=== PATIENT | female | born 1965 | race Caucasian/White ===

== ENCOUNTER 2023-01-10 12:27 | Outpatient (AMB) | payer OTHER, SELFPAY ==
--- NOTE | 2023-01-10 12:34 | AM.OFFWIN_ITS ---
Intake Vital Signs 01/10/23 12:36 Height 5 ft 4 in BP 130/78 Blood Pressure Location Lt brachial Position Sitting Pulse 73 Pulse Source Pulse Oximeter Temp 98.3 F Temp Source Oral Pulse Oximetry (%) 97 Oxygen Delivery Method Room Air Intake Visit Reasons: EP Pinched nerve, numbing waist down rt side Intake Note: pt is here for for a pinched nerve and numbing waist down from right side for other a week Patient Tobacco Use Status: Former Tobacco user Allergies penicillamine Allergy (Intermediate, Verified 01/10/23 13:10) Hives Medication List - Last Reconciled 01/10/23 by Harrison Espitia PA-C amlodipine 5 mg PO DAILY hydrochlorothiazide 25 mg PO DAILY meloxicam 15 mg PO DAILY prednisone 10 mg PO DAILY 6 days Do you need a note to return to daycare/school/sports/work: Yes HPI EP Pinched nerve, numbing waist down rt side HPI Details Patient is a 57-year-old female here today complaining of a pinched nerve in her lumbar spine having numbness in her right lower extremity over the last week. She also reports having numbness in her right hand contributes this to possible carpal tunnel syndrome. She does have a history of sciatica affecting right lower extremity has not tried any [id number] meds or exercises as of yet for her lumbar spine She has tried to get into her primary care though cannot get an appointment. [facility] [place] Social History Patient Tobacco Use Status: Former Tobacco user Review of Systems Const Denies headache(s) Eyes Denies loss of vision ENT Denies vertigo, Denies dizziness, Denies headache(s) and Denies sore throat Card Denies chest pain, Denies leg edema and Denies lightheadedness Resp Denies cough, Denies hemoptysis and Denies wheezing GI Denies abdominal pain, Denies melena, Denies constipation, Denies diarrhea and Denies vomiting Denies urinary frequency, Denies dysuria and Denies urinary urgency Musc Denies arthralgias, Denies joint swelling, Denies numbness and Denies tingling Neuro Denies Abnormal speech present, Denies behavioral changes, Denies vertigo, Denies dizziness, Denies headache(s), Denies loss of vision, Denies memory loss, Denies numbness and Denies tingling Psych Denies anxiety, Denies behavioral changes, Denies depression, Denies memory loss and Denies panic attacks Alberto/Lymph Denies easy bleeding and Denies easy bruising Aller/Immun Denies wheezing Physical Exam Vital Signs: Last Vital Signs Temp 98.3 F 01/10/23 12:36 Pulse 73 01/10/23 12:36 BP 130/78 01/10/23 12:36 Pulse Ox 97 01/10/23 12:36 Oxygen Delivery Method Room Air 01/10/23 12:36 Const General: healthy appearing, no acute distress, alert and awake Nutritional Appearance: well nourished Orientation/consciousness: oriented to person, oriented to place and oriented to time HEENT Ears: TM's normal bilaterally General nose exam: Normal nasal mucous membranes and turbinates present Eyes Conjunctivae: conjunctivae normal Sclerae: sclerae normal Pupils: Equal, round and reactive pupils present Neck Neck: Yes no lymphadenopathy and Yes no JVD Thyroid: Thyroid normal Carotids: no bruits Resp Effort & Inspection: normal respiratory effort and not tachypneic Auscultation: no crackles, no rales, no rhonchi and no wheezes Cardio Rate: regular rate Rhythm: regular rhythm Heart sounds: no murmurs and normal S1 and S2 GI Palpation (GI): Soft to palpation, nontender, no hepatomegaly and no splenomegaly Auscultation: normal bowel sounds Back/Spine/Pelvis Other: Full range of motion of lumbar spine, decreased sensation to light touch over lateral aspect of right lower extremity. Skin General skin exam: no rashes or lesions noted and dry skin Neuro General: oriented to person, oriented to place and oriented to time Cranial nerves: Yes Equal, round and reactive pupils present Speech: No Abnormal speech present Gait exam (Neuro): Normal gait present Motor exam (neuro): no tremor noted Extrem Right upper extremity: full ROM Left upper extremity: full ROM Right lower extremity: full ROM; no edema Left lower extremity: full ROM; no edema Psych Mental Status: mental status grossly normal Speech and movement: Normal speech and movement present Affect: normal affect Attitude: cooperative Thought process: Normal thought process present Assessment & Plan Assessment & Plan (1) Lumbar radicular pain: Code(s): M54.16 - Radiculopathy, lumbar region Plan: In signs symptoms concerning for disc herniation, will send for x-ray to evaluate for arthritis or disc height loss. Will supply prednisone taper for inflammation in lumbar spine. Advised to follow-up with her PCP about getting physical therapy and possibly MRI to evaluate for lumbar disc herniation. Orders: Orders XR lumbar spine 4V min Today M54.16 - Radiculopathy, lumbar region Medications: New prednisone 10 mg PO DAILY 6 days 12 tabs 0RF M54.16 - Radiculopathy, lumbar region Coding Level of Care Code Est Pt Level 3 (90743) Diagnoses Lumbar radicular pain M54.16
[2023-01-10 12:36] VITALS: BP 130/78; PULSE 73; TEMP 36.8; O2SAT 97
== END 2023-01-10 13:14 | disposition home or self-care (01) ==
PROVIDERS: Visit Provider Physician Assistant
DX: M54.16 Radiculopathy, lumbar region (principal)
CPT/HCPCS: 99051; 99213

== ENCOUNTER 2023-01-10 13:11 | Outpatient (REF) | payer OTHER, SELFPAY ==
--- NOTE | ~2023-01-10 | XR_ITS ---
EXAMINATION: XR LUMBOSACRAL SPINE WITH OBLIQUES CLINICAL INFORMATION: Radiculopathy COMPARISON: None available. TECHNIQUE: AP, both oblique, and lateral views of the lumbar spine. Lateral view of the lumbosacral junction. FINDINGS: Bones are normal anatomic alignment with no acute fracture or spondylolisthesis seen. Mild degenerative changes seen in the posterior elements of the lower lumbar spine with mild anterior osteophyte formation at several levels. XR/XR lumbar spine 4V min IMPRESSION: Mild degenerative changes but no acute fracture or spondylolisthesis.
== END 2023-01-10 13:12 | disposition home or self-care (01) ==
LOC: HO.HMGCX 13:11
PROVIDERS: Visit Provider Physician Assistant
DX: M54.16 Radiculopathy, lumbar region (principal)
CPT/HCPCS: 72110

== ENCOUNTER 2024-03-16 08:01 | Outpatient (AMB) | payer OTHER, SELFPAY ==
--- NOTE | 2024-03-16 08:03 | AM.OFFWIN_ITS ---
Intake Vital Signs 3 03/16/24 08:04 Weight 175 lb BP 124/78 Blood Pressure Location Rt brachial Position Sitting Pulse 70 Pulse Source Pulse Oximeter Pulse Oximetry (%) 98 Oxygen Delivery Method Room Air Intake Visit Reasons: EP pain in mouth Intake Note: Patient here for possible tooth infection and is looking for antibiotics. worsening over the past couple of days. Patient Tobacco Use Status: Former Tobacco user Allergies Penicillins Allergy (Severe, Verified 03/16/24 08:19) Angioedema Do you need a note to return to daycare/school/sports/work: No HPI HPI Comments 2 History of Present Illness0 Details Patient is a 58-year-old female who states she has a broken tooth on her left upper back tooth that she believes is infected because it is becoming more and more painful. She knows she needs have put tooth removed but she is having trouble finding a dentist to do it because she needs to be sedated under general anesthesia. She states she has been managing the pain with Tylenol and ibuprofen. Patient also tells me she is allergic to all penicillins, she will have angioedema and turn red [facility] Social History Patient Tobacco Use Status: Former Tobacco user Review of Systems Const All systems reviewed & are unremarkable except as noted in HPI and below Physical Exam Vital Signs: Last Vital Signs Pulse 70 03/16/24 08:04 BP 124/78 03/16/24 08:04 Pulse Ox 98 03/16/24 08:04 Oxygen Delivery Method Room Air 03/16/24 08:04 Const General: cooperative, healthy appearing, comfortable and no acute distress Orientation/consciousness: patient oriented x3 Limitations: no limitations HEENT Head: Yes normal to inspection Ears: hearing grossly normal bilaterally and external ears normal General nose exam: Normal external nose present and Normal nares present Face and sinus: Yes normal facial exam Mouth: Normal oral and palatal mucosa present, lip normal, tongue normal and moist mucous membranes Teeth and gingiva: abnormal tooth and associated gingiva Teeth image: 2 1. broken tooth with surrounding erythema and edema Throat: Yes tonsils normal and Yes uvula midline Eyes General: appearance normal, both eyes and all related structures Neck Neck: Yes normal visual inspection, Yes full ROM and Yes no lymphadenopathy Resp Effort & Inspection: normal respiratory effort and able to speak in complete sentences Skin General skin exam: no rashes or lesions noted Neuro General: patient oriented x3 Assessment & Plan Assessment & Plan (1) Dental infection: Code(s): K04.7 - Periapical abscess without sinus Plan: As patient has allergy to penicillin, we will send clindamycin to pharmacy. Recommended alternating Tylenol and ibuprofen for pain control and securing an appointment with a dentist to have it removed as soon as possible. Plan See above Medications: New 2 clindamycin HCl 450 mg (3 x 150 mg) PO TID 30 caps 0RF Coding Level of Care Code New Pt Level 3 (82344) Diagnoses Dental infection K04.7
[2024-03-16 08:04] VITALS: BP 124/78; PULSE 70; O2SAT 98
== END 2024-03-16 08:24 | disposition home or self-care (01) ==
PROVIDERS: Visit Provider Physician Assistant
DX: K04.7 Periapical abscess without sinus (principal)

== ENCOUNTER → 2024-03-16 08:01 | Outpatient (BNVA) | payer OTHER, SELFPAY | DX: K04.7 Periapical abscess without sinus (principal); Z88.0 Allergy status to penicillin ==

== ENCOUNTER 2024-07-27 10:48 | Outpatient (AMB) | payer OTHER, SELFPAY ==
--- NOTE | 2024-07-27 10:50 | AM.OFFWIN_ITS ---
Intake Vital Signs 07/27/24 10:54 Weight 180 lb BP 140/90 H Blood Pressure Location Lt brachial Position Sitting Pulse 68 Pulse Source Pulse Oximeter Temp 98.2 F Temp Source Oral Pulse Oximetry (%) 98 Oxygen Delivery Method Room Air Intake Visit Reasons: EP ? sinus infection Intake Note: Patient here for sinus pressure and getting dizzy when she bends down. Patient Tobacco Use Status: Former Tobacco user Allergies Penicillins Allergy (Severe, Verified 07/27/24 10:54) Angioedema Do you need a note to return to daycare/school/sports/work: No HPI HPI Comments History of Present Illness Details 58 y/o female patient who presents to [facility] walk in clinic with c/o Dizziness, headaches and Sinus pressure x 2 days. Denies fevers, chills, nausea or vomiting. H/o HTN, BP elevated this morning. Reports taking Amlodipine and HCTZ. She does endorse trouble with sleeping at night. [facility] Medical History (Updated 07/27/24 @ 11:07 by Anjana Suarez NP) Vertigo Social History Patient Tobacco Use Status: Former Tobacco user Review of Systems Const All systems reviewed & are unremarkable except as noted in HPI and below Physical Exam Vital Signs: Last Vital Signs Pulse 68 07/27/24 10:54 BP 140/90 H 07/27/24 10:54 Pulse Ox 98 07/27/24 10:54 Oxygen Delivery Method Room Air 07/27/24 10:54 Const General: cooperative and no acute distress Nutritional Appearance: overweight Orientation/consciousness: patient oriented x3 HEENT Head: Yes normocephalic Ears: external ears normal and TM abnormal with fluid behind the TM bilateral General nose exam: Abnormal mucous membranes and turbinates present boggy and erythematous Face and sinus: Yes sinuses nontender Mouth: moist mucous membranes Throat: Yes uvula midline Resp Effort & Inspection: normal respiratory effort, able to speak in complete sentences, no audible wheezes and no cough Auscultation: clear to auscultation bilaterally, no crackles, no rales, no rhonchi and no wheezes Cardio Heart sounds: S1 normal heart sound present and S2 normal heart sound present Neuro General: patient oriented x3, gait normal and moves all extremities Psych Speech and movement: Normal speech and movement present Assessment & Plan Assessment & Plan (1) Vertigo: Code(s): R42 - Dizziness and giddiness Plan: Advised to Hydrate well Ordered Meclizine. F/U with PCP Medications: New meclizine (Dramamine (meclizine)) 25 mg PO BID PRN 60 tabs 0RF dizziness R42 - Dizziness and giddiness Coding Level of Care Code Est Pt Level 3 (59312) Diagnoses Vertigo R42 Time Spent (min) 15
[2024-07-27 10:54] VITALS: BP 140/90; PULSE 68; TEMP 36.8; O2SAT 98
== END 2024-07-27 11:12 | disposition home or self-care (01) ==
PROVIDERS: Visit Provider Nurse Practitioner Family
DX: R42 Dizziness and giddiness (principal)